=== PATIENT | female | born 1995 | race American Indian/Alaskan Native ===

== ENCOUNTER 2019-02-05 22:31 | Emergency (ER) | payer OTHER ==
[2019-02-05 22:35] VITALS: BP 147/94
[2019-02-05] MEDS ORDERED: IBUPROFEN PO ONE (23:15)
[2019-02-05] MEDS ORDERED: DELTASONE PO ONE (23:15)
[2019-02-05] MEDS ORDERED: BENADRYL PO ONE (23:15)
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
== END 2019-02-06 00:25 | disposition home or self-care (01) ==
LOC: ED 22:31
DX: S16.1XXA Strain of muscle, fascia and tendon at neck level, initial encounter (principal); Y08.89XA Assault by other specified means, initial encounter; Y93.89 Activity, other specified; Y92.89 Other specified places as the place of occurrence of the external cause; Y99.8 Other external cause status
CPT/HCPCS: 70360; 99283; J7512